=== PATIENT | male | born 1990 | race Caucasian/White ===

== ENCOUNTER 2017-03-07 06:00 | Emergency (ER) | payer OTHER ==
[~2017-03-07 06:00] MED LIST: ACT30 PO; LOP600 PO; METFORMIN HYD1000 M1 PO; ZES20 PO; ZOCOR20 MG PO
[2017-03-07 06:49] LABS: BASOPHIL % 0.3 % (0-2); PLATELET COUNT 173 x10^3mcL (130-400); RED CELL DISTRIBUTION WIDTH 12.8 % (11.5-14.5)
[2017-03-07 06:50] LABS: CALCIUM 8.2 mg/dL (8.5-10.1); CARBON DIOXIDE 25.9 mmol/L (21-32); CHLORIDE SERUM 101 mmol/L (98-107); CREATININE SERUM 0.9 mg/dL (0.7-1.3); GFR1 > 60 mL/min; GLUCOSE SERUM 151 mg/dL (74-106); SODIUM SERUM 137 mmol/L (136-145)
[2017-03-07 06:54] LABS: ALBUMIN 3.8 g/dL (3.4-5.0); ALKALINE PHOSPHATASE 48 U/L (46-116); ALT/SGPT 54 U/L (16-63); AMYLASE 35 U/L (25-115); AST/SGOT 27 U/L (15-37); BILIRUBIN TOTAL 0.56 mg/dL (0.20-1.00); LIPASE 178 IU/L (73-393); TOTAL PROTEIN, SERUM 6.9 g/dL (6.4-8.2)
[2017-03-07 08:47] VITALS: BP 120/64
== END 2017-03-07 08:47 | disposition home or self-care (01) ==
LOC: ED 06:00
PROVIDERS: Specialist
DX: R11.10 Vomiting, unspecified (principal); R19.7 Diarrhea, unspecified; R10.9 Unspecified abdominal pain; I10 Essential (primary) hypertension; E11.9 Type 2 diabetes mellitus without complications; Z79.84 Long term (current) use of oral hypoglycemic drugs
CPT/HCPCS: 83880; J1885; J7030

== ENCOUNTER 2019-03-19 07:43 | Emergency (ER) | payer BC ==
[~2019-03-19] VITALS: Ht 190.5 cm; Wt 93.0 kg
[2019-03-19 07:53] VITALS: Ht 190.5 cm; Wt 93.0 kg
[2019-03-19 09:31] LABS: CALCIUM 9.2 mg/dL (8.5-10.1); CARBON DIOXIDE 24.8 mmol/L (21-32); CHLORIDE SERUM 101 mmol/L (98-107); CREATININE SERUM 0.9 mg/dL (0.7-1.3); GFR1 > 60 mL/min; GLUCOSE SERUM 308 mg/dL (74-106); POTASSIUM SERUM 4.3 mmol/L (3.5-5.1); SODIUM SERUM 137 mmol/L (136-145)
[2019-03-19 09:36] LABS: ALBUMIN 4.3 g/dL (3.4-5.0); ALKALINE PHOSPHATASE 60 U/L (46-116); ALT/SGPT 67 U/L (16-63); AST/SGOT 16 U/L (15-37); BILIRUBIN TOTAL 0.34 mg/dL (0.20-1.00); TOTAL PROTEIN, SERUM 7.6 g/dL (6.4-8.2)
[2019-03-19 10:33] LABS: BASOPHIL % 0 % (0-2); PLATELET COUNT 248 x10^3mcL (130-400)
[2019-03-19 11:45] VITALS: BP 144/102
== END 2019-03-19 11:54 | disposition home or self-care (01) ==
LOC: ED 07:43
PROVIDERS: Emergency Medicine
DX: R07.89 Other chest pain (principal); E11.65 Type 2 diabetes mellitus with hyperglycemia; M79.604 Pain in right leg; R20.2 Paresthesia of skin; E78.00 Pure hypercholesterolemia, unspecified; I10 Essential (primary) hypertension
CPT/HCPCS: 36415; 82962; 85378; J2765; Q0092